=== PATIENT | male | born 1985 | race African-American/Black ===

== ENCOUNTER 2020-11-10 21:45 | Emergency (ER) | payer OTHER ==
[~2020-11-10] VITALS: Ht 188 cm; Wt 113.4 kg
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
[2020-11-10 22:07] LABS: HEMATOCRIT 41.6 % (42.0-52.0); HEMOGLOBIN 13.6 gm/dL (14.0-18.0); MCH 28.6 pg (26.0-34.0); MCHC 32.8 g/dL (28.0-37.0); MCV 87.3 fL (80.0-100.0); PLATELET COUNT 238 thou/uL (150-400); RBC 4.76 mil/uL (4.50-6.00); WBC 6.6 thou/uL (4.0-11.0)
[2020-11-10 22:22] LABS: CALCIUM 8.6 mg/dL (8.5-10.1); CREATININE 1.4 mg/dL (0.7-1.3); POTASSIUM 3.3 mmol/L (3.5-5.1)
[2020-11-10] MEDS ORDERED: TOPROL XL25 MG PO (22:35)
[2020-11-10 22:58] LABS: ABSOLUTE NEUTROPHILS 1.9 thou/uL (1.4-8.2); ANISOCYTOSIS 1+; LARGE PLATELETS FEW; PLATELET ESTIMATE NORMAL; POIKILOCYTOSIS 1+
[2020-11-10 23:52] VITALS: BP 145/91
--- NOTE | 2020-11-11 08:18 | EKG ---
[place] [address] [facility] [place] [address] ELECTROCARDIOGRAM REPORT Name: NAHOMI JOHNSON Room #: SANJAY Chinchilla#: [id number] Admission: 11/10/20 Attend Phys: Discharge: 11/10/20 Date of : [birth year] Report #: [id number] [facility] ED Test Date: 2020-11-10 Test Time: 21:47:47 Pat Name: NAHOMI JOHNSON Department: Room: Gender: M [employer] Operator: everton : 1985 Requested By: Simba Pascual Order Number: [id number] MD: Wilmar Eastman Measurements Intervals Randall Rate: 123 P: 70 [place]: 166 QRS: 64 QRSD: 87 T: -55 QT: 299 QTc: 428 Interpretive Statements Sinus tachycardia Probable left atrial enlargement Probable left ventricular hypertrophy Nonspecific T abnormalities, diffuse leads Anterior ST elevation, probably due to LVH No previous ECG available for comparison Electronically Signed On 11-11-2020 8:17:56 CDT by Wilmar Eastman [email or web address] <ELECTRONICALLY SIGNED> By: Wilmar Eastman MD, [facility] 11/11/20 0817 [id number] Wilmar Eastman MD, FACC /EPI
== END 2020-11-10 23:54 | disposition home or self-care (01) ==
LOC: ER 21:45
PROVIDERS: Emergency Medicine
DX: I47.1 Supraventricular tachycardia (principal)